=== PATIENT | female | born 1995 | race American Indian/Alaskan Native ===

== ENCOUNTER 2017-06-28 08:37 | Emergency (ER) | payer SELFPAY ==
[2017-06-28 08:52] VITALS: BP 105/69
--- NOTE | 2017-06-28 09:34 | Emergency Department Report ---
ED Female HPI - General Chief complaint: Urogenital-Female Stated complaint: STOMACH PAINS, FOUL URINE Time Seen by Provider: 06/28/17 09:31 Source: patient Mode of arrival: Ambulatory Limitations: No Limitations - History of Present Illness Initial comments: Pt reports she was seen in ER in [place] last week and diagnosed with UTI, lost script and has continued to have sx of dysuria, frequency and is now also 3 days late for period. No current vaginal bleeding. Emesis x 2 this week. No fever. MD Complaint: dysuria, pelvic pain -: Gradual, week(s) (1) Location: suprapubic Radiation: suprapubic Severity: mild Quality: burning Consistency: constant Improves with: none Worsens with: none Associated Symptoms: abdominal pain, nausea/vomiting, dysuria. denies: vaginal discharge, vaginal bleeding, fever/chills - Related Data Sexually active: Yes Previous Rx's Medication Instructions Recorded Last Taken Type Nitrofurantoin Monohyd/M-Cryst 100 mg PO BID #14 capsule 06/28/17 Unknown Rx [Macrobid 100 mg Capsule] Allergies Allergy/AdvReac Type Severity Reaction Status Date / Time No Known Allergies Allergy Verified 06/28/17 08:46 ED Review of Systems ROS: Stated complaint: STOMACH PAINS, FOUL URINE Other details as noted in HPI Comment: All other systems reviewed and negative Constitutional: denies: chills, fever Eyes: denies: eye pain, eye discharge, vision change ENT: denies: ear pain, throat pain Respiratory: denies: cough, shortness of breath, wheezing Cardiovascular: denies: chest pain, palpitations Endocrine: no symptoms reported Gastrointestinal: as per HPI, abdominal pain, nausea, vomiting. denies: diarrhea Genitourinary: as per HPI, urgency, dysuria. denies: discharge Musculoskeletal: denies: back pain, joint swelling, arthralgia Skin: denies: rash, lesions Neurological: denies: headache, weakness, paresthesias Psychiatric: denies: anxiety, depression Hematological/Lymphatic: denies: easy bleeding, easy bruising ED Past Medical Hx - Past Medical History Previous Medical History?: No - Surgical History Past Surgical History?: No - Social History Smoking Status: Never Smoker Substance Use Type: None - Medications Home Medications: Home Medications Medication Instructions Recorded Confirmed Last Taken Type Nitrofurantoin Monohyd/M-Cryst 100 mg PO BID #14 capsule 06/28/17 Unknown Rx [Macrobid 100 mg Capsule] ED Physical Exam - General Limitations: No Limitations General appearance: alert, in no apparent distress - Head Head exam: Present: atraumatic, normocephalic - Eye Eye exam: Present: normal appearance - ENT ENT exam: Present: mucous membranes moist - Neck Neck exam: Present: normal inspection - Respiratory Respiratory exam: Present: normal lung sounds bilaterally. Absent: respiratory distress - Cardiovascular Cardiovascular Exam: Present: regular rate, normal rhythm. Absent: systolic murmur, diastolic murmur, rubs, gallop - GI/Abdominal GI/Abdominal exam: Present: soft, tenderness (suprapubic), normal bowel sounds. Absent: guarding, rebound - Extremities Exam Extremities exam: Present: normal inspection - Back Exam Back exam: Present: normal inspection - Neurological Exam Neurological exam: Present: alert, oriented X3 - Psychiatric Psychiatric exam: Present: normal affect, normal mood - Skin Skin exam: Present: warm, dry, intact, normal color. Absent: rash ED Course Vital Signs 06/28/17 08:46 Temperature 98.3 F Pulse Rate 64 Respiratory 18 Rate Blood Pressure 105/69 O2 Sat by Pulse 100 Oximetry - Reevaluation(s) Reevaluation #1: 06/28/17 11:05 Pt is in NAD and stable for d/c. ED Medical Decision Making - Lab Data UA shows leukocytes and WBC c/w UTI. UPT would not post in EMR though lab verbally told me it was negative. - Medical Decision Making Pt with UTI, consistent sx. Will treat and have her follow up with PCP. Supportive care and return precautions given. - Differential Diagnosis UTI, stone, STI Critical care attestation.: If time is entered above; I have spent that time in minutes in the direct care of this critically ill patient, excluding procedure time. ED Disposition Clinical Impression: Acute UTI (urinary tract infection) Disposition: TO HOME OR SELFCARE Is pt being admited?: No Condition: Good Instructions: Urinary Tract Infection in Women (ED) Prescriptions: Nitrofurantoin Monohyd/M-Cryst [Macrobid 100 mg Capsule] 100 mg PO BID #14 capsule Referrals: PRIMARY CAREMD [Primary Care Provider] - 3-5 Days MARK LYNN MD [Staff Physician] - 3-5 Days Time of Disposition: 11:08
[2017-06-28 09:41] LABS: Bacteria,Urine 1+ /HPF (Negative); Bilirubin,Urine NEG (Negative); Blood,Urine NEG (Negative); Ketones,Urine NEG (Negative); Leukocyte Esterase,Urine SM (Negative); Mucus,Urine 3+ /HPF; Nitrite,Urine NEG (Negative); Protein,Urine <15 mg/dL mg/dL (Negative); Urobilinogen,Urine < 2.0 mg/dL (<2.0)
[2017-06-28] MEDS ORDERED: ROCEPHIN IM ONE (10:15)
[2017-06-28] MEDS ORDERED: XYLOCAINE 1% MPF 5 mL INFILTRATI ONE (10:15)
== END 2017-06-28 11:23 | disposition home or self-care (01) ==
LOC: ED 08:37
DX: N39.0 Urinary tract infection, site not specified (principal)
CPT/HCPCS: 81001; 81025; 96372; 99282; J0696

== ENCOUNTER 2017-09-29 22:09 | Emergency (ER) | payer SELFPAY ==
[2017-09-30 04:42] LABS: HCG Qualitative,Urine Negative (Negative)
[2017-09-30 04:44] LABS: Bilirubin,Urine NEG (Negative); Blood,Urine NEG (Negative); Color,Urine Yellow (Yellow); Mucus,Urine 1+ /HPF; Nitrite,Urine NEG (Negative); Protein,Urine <15 mg/dL mg/dL (Negative); Urobilinogen,Urine < 2.0 mg/dL (<2.0)
--- NOTE | 2017-09-30 05:34 | Emergency Department Report ---
ED Female HPI - General Chief complaint: Urogenital-Female Stated complaint: URINE PROBLEMS Time Seen by Provider: 09/30/17 03:46 Source: patient Mode of arrival: Ambulatory Limitations: No Limitations - History of Present Illness Initial comments: 22-year-old -[place] female comes in for vaginal discharge with odor that she's had for at least a week. Patient denies any vaginal bleeding denies any dysuria denies any fever chills no nausea no vomiting no diarrhea. She is sexually active with males unprotected 2 partners in the last year denies any abdominal pain. She has no known drug allergies no past medical history currently takes no meds. MD Complaint: vaginal discharge -: week(s) (1) Are you Now?: No Last Menstrual Period: 09/27/17 EDC: 07/04/18 Associated Symptoms: vaginal discharge. denies: vaginal bleeding, abdominal pain, nausea/vomiting, fever/chills, headaches, loss of appetite, dysuria, hematuria - Related Data Sexually active: Yes (men) Previous Rx's Medication Instructions Recorded Last Taken Type Nitrofurantoin Monohyd/M-Cryst 100 mg PO BID #14 capsule 06/28/17 Unknown Rx [Macrobid 100 mg Capsule] Allergies Allergy/AdvReac Type Severity Reaction Status Date / Time No Known Allergies Allergy Verified 06/28/17 08:46 ED Review of Systems ROS: Stated complaint: URINE PROBLEMS Other details as noted in HPI Constitutional: denies: chills, fever Eyes: denies: eye pain, eye discharge, vision change ENT: denies: ear pain, throat pain Respiratory: denies: cough, shortness of breath, wheezing Cardiovascular: denies: chest pain, palpitations Endocrine: no symptoms reported Gastrointestinal: denies: abdominal pain, nausea, diarrhea Genitourinary: discharge (vaginal) Musculoskeletal: denies: back pain, joint swelling, arthralgia Skin: denies: rash, lesions Neurological: denies: headache, weakness, paresthesias Psychiatric: denies: anxiety, depression ED Past Medical Hx - Past Medical History Previous Medical History?: No - Surgical History Past Surgical History?: No - Social History Smoking Status: Current Every Day Smoker Substance Use Type: None - Medications Home Medications: Home Medications Medication Instructions Recorded Confirmed Last Taken Type Nitrofurantoin Monohyd/M-Cryst 100 mg PO BID #14 capsule 06/28/17 Unknown Rx [Macrobid 100 mg Capsule] ED Physical Exam - General Limitations: No Limitations ED Course Vital Signs 09/30/17 02:32 Temperature 98.3 F Pulse Rate 74 Respiratory 17 Rate Blood Pressure 112/84 O2 Sat by Pulse 100 Oximetry ED Medical Decision Making - Medical Decision Making Patient has been seen by this provider fast track. Vaginal cultures and wet prep obtained and sent to the lab. We'll treat the patient presumptively for STDs Critical care attestation.: If time is entered above; I have spent that time in minutes in the direct care of this critically ill patient, excluding procedure time. ED Disposition Clinical Impression: Vaginitis Qualifiers: Chronicity: acute Qualified Code(s): N76.0 - Acute vaginitis Disposition: ELOPED Is pt being admited?: No Does the pt Need Aspirin: No Condition: Stable Referrals: PRIMARY CARE, [Primary Care Provider] - 3-5 Days
[2017-09-30] MEDS ORDERED: ZITHROMAX PO ONE (08:15)
[2017-09-30] MEDS ORDERED: ROCEPHIN IM ONE (08:15)
[2017-09-30] MEDS ORDERED: XYLOCAINE 1% MPF 5 mL INFILTRATI ONE (08:15)
[2017-09-30 08:48] VITALS: BP 112/77
== END 2017-09-30 08:40 | disposition home or self-care (01) ==
LOC: ED 22:09
DX: N76.0 Acute vaginitis (principal); F17.200 Nicotine dependence, unspecified, uncomplicated
CPT/HCPCS: 81001; 81025; 87210; 87591; 96372; 99283; J0696

== ENCOUNTER 2018-04-07 00:26 | Emergency (ER) | payer SELFPAY ==
[2018-04-07 01:04] VITALS: BP 113/75
[2018-04-07 02:00] LABS: Amorphous Crystals,Urine 2+; Bacteria,Urine 1+ /HPF (Negative); Bilirubin,Urine NEG (Negative); Blood,Urine SM (Negative); Color,Urine Yellow (Yellow); Granular Casts,Urine 51 /LPF; Mucus,Urine FEW /HPF; Protein,Urine <15 mg/dL mg/dL (Negative)
[2018-04-07 02:01] LABS: HCG Qualitative,Urine Negative (Negative)
--- NOTE | 2018-04-07 03:56 | Emergency Department Report ---
ED Female HPI - General Chief complaint: Urogenital-Female Stated complaint: ABDOMINAL PAIN,BURN WHEN URINATING Time Seen by Provider: 04/07/18 03:43 Source: patient Mode of arrival: Ambulatory Limitations: No Limitations - Related Data Previous Rx's Medication Instructions Recorded Last Taken Type Nitrofurantoin Monohyd/M-Cryst 100 mg PO BID #14 capsule 06/28/17 Unknown Rx [Macrobid 100 mg Capsule] metroNIDAZOLE [Flagyl] 500 mg PO Q12HR #14 tab 09/30/17 Unknown Rx Allergies Allergy/AdvReac Type Severity Reaction Status Date / Time No Known Allergies Allergy Verified 06/28/17 08:46 ED Review of Systems ROS: Stated complaint: ABDOMINAL PAIN,BURN WHEN URINATING Other details as noted in HPI ED Past Medical Hx - Past Medical History Previous Medical History?: No - Surgical History Past Surgical History?: No - Social History Smoking Status: Never Smoker Substance Use Type: None - Medications Home Medications: Home Medications Medication Instructions Recorded Confirmed Last Taken Type Nitrofurantoin Monohyd/M-Cryst 100 mg PO BID #14 capsule 06/28/17 Unknown Rx [Macrobid 100 mg Capsule] metroNIDAZOLE [Flagyl] 500 mg PO Q12HR #14 tab 09/30/17 Unknown Rx ED Physical Exam - General Limitations: No Limitations ED Course Vital Signs 04/07/18 00:34 Temperature 99.1 F Pulse Rate 73 Respiratory 16 Rate Blood Pressure 113/75 O2 Sat by Pulse 100 Oximetry Critical care attestation.: If time is entered above; I have spent that time in minutes in the direct care of this critically ill patient, excluding procedure time. ED Disposition Disposition: DC-01 TO HOME OR SELFCARE Condition: Stable Referrals: PRIMARY CARE, [Primary Care Provider] - 3-5 Days
[2018-04-07] MEDS ORDERED: ZITHROMAX ONE (05:48)
[2018-04-07] MEDS ORDERED: ROCEPHIN ONE (05:49)
== END 2018-04-07 03:45 | disposition home or self-care (01) ==
LOC: ED 00:26
DX: R10.9 Unspecified abdominal pain (principal); R30.0 Dysuria
CPT/HCPCS: 81001; 81025; 87210; 87591; 99284; J0696

== ENCOUNTER 2019-01-21 22:46 | Emergency (ER) | payer SELFPAY ==
[2019-01-21 22:57] VITALS: BP 114/75
[2019-01-22 00:06] LABS: Hematocrit 42.1 % (30.3-42.9); Hemoglobin 14.4 gm/dl (10.1-14.3); Mean Corpuscular HGB Conc 34 % (30-34); Mean Corpuscular Volume 89 fl (79-97); Platelet Count 228 K/mm3 (140-440); Red Blood Count 4.74 M/mm3 (3.65-5.03); Red Cell Distribution Width 13.3 % (13.2-15.2)
[2019-01-22 00:19] LABS: Bilirubin,Urine NEG (Negative); Blood,Urine NEG (Negative); Color,Urine Yellow (Yellow); Hyaline Casts,Urine 1 /LPF; Mucus,Urine FEW /HPF; Protein,Urine <15 mg/dL mg/dL (Negative)
[2019-01-22 00:25] LABS: Alanine Aminotransferase 25 units/L (7-56); Albumin 4.6 g/dL (3.9-5); BUN/Creatinine Ratio 14; Blood Urea Nitrogen 10 mg/dL (7-17); Hemolysis Index 13
--- NOTE | 2019-01-22 02:03 | Emergency Department Report ---
ED Female HPI - General Chief complaint: Abdominal Pain Stated complaint: PAINFUL VAGINAL DISCHARGE ODOR ABD PAIN Time Seen by Provider: 01/22/19 01:35 Source: patient Mode of arrival: Ambulatory Limitations: No Limitations - History of Present Illness Initial comments: This is a 23-year-old female who presents to ED complaining of mild odorous vaginal discharge for the past 3 days. Patient states that she is experiencing some pelvic cramping. Patient denies fevers/chills/nausea vomiting/irregular bleeding/vaginal lesions/dysuria/vaginal itching. Patient states she was recently seen about a week ago and was treated for a UTI and currently taking Bactrim. MD Complaint: vaginal discharge, pelvic pain - Related Data Previous Rx's Medication Instructions Recorded Last Taken Type Nitrofurantoin Monohyd/M-Cryst 100 mg PO BID #14 capsule 06/28/17 Unknown Rx [Macrobid 100 mg Capsule] metroNIDAZOLE [Flagyl] 500 mg PO Q12HR #14 tab 09/30/17 Unknown Rx Clindamycin [Clindamycin CAP] 300 mg PO BID #14 cap 01/22/19 Unknown Rx Fluconazole [Diflucan TAB] 150 mg PO ONCE #1 tablet 01/22/19 Unknown Rx Allergies Allergy/AdvReac Type Severity Reaction Status Date / Time No Known Allergies Allergy Verified 06/28/17 08:46 ED Review of Systems ROS: Stated complaint: PAINFUL VAGINAL DISCHARGE ODOR ABD PAIN Other details as noted in HPI Comment: All other systems reviewed and negative ED Past Medical Hx - Past Medical History Previous Medical History?: No - Surgical History Past Surgical History?: No - Social History Smoking Status: Former Smoker Substance Use Type: None - Medications Home Medications: Home Medications Medication Instructions Recorded Confirmed Last Taken Type Nitrofurantoin Monohyd/M-Cryst 100 mg PO BID #14 capsule 06/28/17 Unknown Rx [Macrobid 100 mg Capsule] metroNIDAZOLE [Flagyl] 500 mg PO Q12HR #14 tab 09/30/17 Unknown Rx Clindamycin [Clindamycin CAP] 300 mg PO BID #14 cap 01/22/19 Unknown Rx Fluconazole [Diflucan TAB] 150 mg PO ONCE #1 tablet 01/22/19 Unknown Rx ED Physical Exam - General Limitations: No Limitations General appearance: alert, in no apparent distress - Head Head exam: Present: atraumatic, normocephalic - Eye Eye exam: Present: normal appearance - ENT ENT exam: Present: mucous membranes moist - Neck Neck exam: Present: normal inspection - Respiratory Respiratory exam: Present: normal lung sounds bilaterally. Absent: respiratory distress - Cardiovascular Cardiovascular Exam: Present: regular rate, normal rhythm. Absent: systolic murmur, diastolic murmur, rubs, gallop - GI/Abdominal GI/Abdominal exam: Present: soft, normal bowel sounds. Absent: distended, tenderness - External exam: Present: normal external exam Speculum exam: Present: vaginal discharge (copious, green, malodorous), cervical discharge, other (sample obtained for wet prep as well as GC). Absent: vaginal bleeding, foreign body Bi-manual exam: Present: normal bi-manual exam. Absent: cervical motion tendernes, adnexal tenderness - Extremities Exam Extremities exam: Present: normal inspection - Back Exam Back exam: Present: normal inspection - Neurological Exam Neurological exam: Present: alert, oriented X3 - Psychiatric Psychiatric exam: Present: normal affect, normal mood - Skin Skin exam: Present: warm, dry, intact, normal color. Absent: rash ED Course Vital Signs 01/21/19 22:56 Temperature 97.9 F Pulse Rate 97 H Respiratory 18 Rate Blood Pressure 114/75 O2 Sat by Pulse 100 Oximetry ED Medical Decision Making - Lab Data Result diagrams: 01/21/19 23:50 01/21/19 23:50 - Medical Decision Making 23-year-old female presents with vaginitis ED course: urinalysis and gonorrhea and Chlamydia cultures obtained. Urinalysis negative, test negative Discussed the patient diarrhea and Chlamydia results would not return on several 3-4 days. Patient may call back for results and treatment Discussed with patient findings and treatment Discussed patient partner knowledge and treatment. Discussed the follow-up with the health department for further STD testing. Patient's alert and oriented times 3. Vital signs are normal patient is in no acute discharge. Patient will be discharged home with instructions. Critical care attestation.: If time is entered above; I have spent that time in minutes in the direct care of this critically ill patient, excluding procedure time. ED Disposition Clinical Impression: Vaginitis, Bacterial vaginosis Disposition: - TO HOME OR SELFCARE Is pt being admited?: No Does the pt Need Aspirin: No Condition: Stable Instructions: Bacterial Vaginosis (ED), Safe Sex (ED), Trichomoniasis (ED), Vaginitis (ED), Abdominal Pain (ED) Additional Instructions: Make sure to follow up with the primary care physician as discussed. Take all your medications as you've been prescribed. If you have any worsening symptoms or develop new symptoms please return to ED immediately. Prescriptions: Clindamycin [Clindamycin CAP] 300 mg PO BID #14 cap Fluconazole [Diflucan TAB] 150 mg PO ONCE #1 tablet Referrals: [facility] [Outside] - 3-5 Days [facility] [Outside] - 3-5 Days Forms: Work/School Release Form(ED), STI Treatment and Prevention Time of Disposition: 03:06
[2019-01-22 06:31] LABS: Band Neutrophils # (Manual) 0.2 K/mm3; RBC Morphology Normal; Total Cells Counted 100
== END 2019-01-22 03:15 | disposition home or self-care (01) ==
LOC: ED 22:46
DX: N76.0 Acute vaginitis (principal); B96.89 Other specified bacterial agents as the cause of diseases classified elsewhere; Z87.891 Personal history of nicotine dependence
CPT/HCPCS: 36415; 80053; 81001; 84703; 85007; 85025; 87210; 87591; 99284

== ENCOUNTER 2019-09-18 06:19 | Emergency (ER) | payer SELFPAY ==
[2019-09-18 06:29] VITALS: BP 122/76
[2019-09-18 08:22] LABS: Bilirubin,Urine NEG (Negative); Blood,Urine NEG (Negative); Color,Urine Yellow (Yellow); Mucus,Urine FEW /HPF; Protein,Urine <15 mg/dL mg/dL (Negative); Urobilinogen,Urine < 2.0 mg/dL (<2.0); WBC,Urine < 1.0 /HPF (0.0-6.0)
--- NOTE | 2019-09-18 08:24 | Emergency Department Report ---
Chief Complaint: Urogenital-Female Stated Complaint: VAGINAL DISCHARGE Time Seen by Provider: 09/18/19 07:49 - HPI History of Present Illness: 24-year-old female complaining of vaginal discharge 3 days. - Exam Vital Signs: Vital Signs 09/18/19 06:24 Temperature 97.6 F Pulse Rate 78 Respiratory 18 Rate Blood Pressure 122/76 O2 Sat by Pulse 100 Oximetry Physical Exam: Patient alert and oriented 3 respirations easy and nonlabored skin warm dry and intact she's amateur with steady gait and in no distress MSE screening note: Focused history and physical exam performed. Due to findings the following was ordered: 24-year-old female with complaint of vaginal discharge 3 days only she denies any abdominal pain nausea vomiting discussed with patient this emergency room policy on vaginal discharge and STD screening. Instructed patient to follow up with her PCP [facility] or Dr. Luis Carlos Sutherland ED Disposition for MSE Clinical Impression: Vaginal discharge Disposition: MED SCREENING EXAM-LEFT Is pt being admited?: No Does the pt Need Aspirin: No Condition: Stable Additional Instructions: Instruct patient to follow-up with [facility] or her PCP I offered patient pamphlets for [facility] and Dr. Luis Carlos Blum patient refused states she will go someplace else. Patient got up and walked out of the emergency room Time of Disposition: 08:23
[2019-09-18 08:31] LABS: HCG Qualitative,Urine Negative (Negative)
== END 2019-09-18 08:24 | disposition left against medical advice (07) ==
LOC: ED 06:19
DX: N89.8 Other specified noninflammatory disorders of vagina (principal)
CPT/HCPCS: 81001; 81025

== ENCOUNTER 2019-11-02 07:58 | Emergency (ER) | payer SELFPAY ==
[2019-11-02 08:06] VITALS: BP 126/73
[2019-11-02] MEDS ORDERED: ACETAMINOPHEN 325 MG TAB PO ONE (08:26)
--- NOTE | 2019-11-02 08:26 | Emergency Department Report ---
Minor Respiratory - HPI Chief Complaint: Sore Throat Stated Complaint: SORE THROAT, COUGHING Time Seen by Provider: 11/02/19 08:16 Duration: 3 Days Pain Location: Throat, Other (nasal congestion runny nose) Severity: mild Minor Respiratory: Yes Rhinorrhea, Yes Sore Throat (no drooling), Yes Able to Tolerate Fluids, No Ear Pain, No Cough, No Sick Contacts, No Hemoptysis, No Chest Pain, No Shortness of Breath, No Fever ED Review of Systems ROS: Stated complaint: SORE THROAT, COUGHING Other details as noted in HPI Constitutional: denies: chills, fever, weakness ENT: throat pain, congestion. denies: ear pain, dental pain, hearing loss Respiratory: denies: cough, shortness of breath, SOB with exertion, SOB at rest, wheezing Cardiovascular: denies: chest pain, palpitations, edema, syncope Gastrointestinal: denies: abdominal pain, nausea, vomiting, diarrhea Genitourinary: denies: dysuria, frequency, hematuria, discharge Musculoskeletal: denies: back pain, joint swelling, arthralgia, myalgia Skin: denies: rash Neurological: denies: headache, weakness ED Past Medical Hx - Past Medical History Previous Medical History?: No - Surgical History Past Surgical History?: No - Family History Family history: no significant - Social History Smoking Status: Never Smoker Substance Use Type: None - Medications Home Medications: Home Medications Medication Instructions Recorded Confirmed Last Taken Type Nitrofurantoin Monohyd/M-Cryst 100 mg PO BID #14 capsule 06/28/17 Unknown Rx [Macrobid 100 mg Capsule] metroNIDAZOLE [Flagyl] 500 mg PO Q12HR #14 tab 09/30/17 Unknown Rx Clindamycin [Clindamycin CAP] 300 mg PO BID #14 cap 01/22/19 Unknown Rx Fluconazole [Diflucan TAB] 150 mg PO ONCE #1 tablet 01/22/19 Unknown Rx Cetirizine HCl [ZyrTEC 10mg cap] 10 mg PO QDAY 10 Days #10 capsule 11/02/19 Unknown Rx Minor Respiratory Exam - Exam General: Vital signs noted. No distress. Alert and acting appropriately. This is a 24-year-old female here report that she is having sore throat and nasal congestion HEENT: Yes Moist Mucous Membranes, Yes Rhinorrhea, No Pharyngeal Erythema, No Pharyngeal Exudates, No Conjuctival Injection, No Frontal Tenderness, No Maxillary Tenderness Ear: Neither TM Bulge, Neither TM Erythema, Neither EAC Pain, Neither EAC Discharge Neck: Yes Supple, No Adenopathy Lungs: Yes Good Air Exchange, No Wheezes, No Ronchi, No Stridor, No Cough, No Labored Respirations, No Retractions, No Use of Accessory Muscles, No Other Abnormal Lung Sounds Heart: Yes Regular, No Murmur Abdomen: Yes Normal Bowel Sounds, No Tenderness, No Peritoneal Signs Skin: No Rash, No Edema Neurologic: Alert and oriented, no deficits. Musculoskeletal: Unremarkable. ED Course Vital Signs 11/02/19 08:04 Temperature 98.9 F Pulse Rate 104 H Respiratory 19 Rate Blood Pressure 126/73 [Left] O2 Sat by Pulse 99 Oximetry Vital Signs 11/02/19 11/02/19 11/02/19 08:04 08:34 09:05 Temperature 98.9 F Pulse Rate 104 H 100 H Respiratory 19 18 Rate Blood Pressure 126/73 [Left] O2 Sat by Pulse 99 99 Oximetry - Reevaluation(s) Reevaluation #1: 11/02/19 08:38 Patient stable. Pain 3/10. Tolerating fluids. Received Tylenol 975 mg po for sore throat ED Medical Decision Making - Lab Data Lab Results 11/02/19 Range/Units 08:25 Group A Strep Rapid Negative (Negative) - Medical Decision Making This is a 24-year-old female here for sore throat and found to have upper respiratory with congestion viral in nature. Patient given Zyrtec in emergency room. She remained stable. Vital signs stable she is afebrile and discharged home on Zyrtec and Flonase. She is to follow-up with her primary care physician and she voiced understanding. Critical care attestation.: If time is entered above; I have spent that time in minutes in the direct care of this critically ill patient, excluding procedure time. ED Disposition Clinical Impression: Upper respiratory infection, viral Pharyngitis Qualifiers: Pharyngitis/tonsillitis etiology: unspecified etiology Qualified Code(s): J02.9 - Acute pharyngitis, unspecified Disposition: DC-01 TO HOME OR SELFCARE Is pt being admited?: No Does the pt Need Aspirin: No Condition: Stable Instructions: COVID-19, Pharyngitis (ED), Upper Respiratory Infection (ED) Additional Instructions: Please follow up with your Primary Care Physician in 2 days If your condition worsens, Return to the emergency room Practice good hand hygiene Follow d/c instructions on Pharyngitis, COVID 19 and Upper Respiratory Tract Infection Gargle with warm salt water Take tylenol OTC 650 mg Q8H as needed for fever and or sore throat Prescriptions: Cetirizine HCl [ZyrTEC 10mg cap] 10 mg PO QDAY 10 Days #10 capsule Referrals: PRIMARY CARE [Primary Care Provider] - 11/04/19 Forms: Work/School Release Form(ED)
== END 2019-11-02 09:23 | disposition home or self-care (01) ==
LOC: ED 07:58
DX: J06.9 Acute upper respiratory infection, unspecified (principal); J02.9 Acute pharyngitis, unspecified; Z79.899 Other long term (current) drug therapy
CPT/HCPCS: 87116; 87430; 99283

== ENCOUNTER 2020-07-13 16:37 | Emergency (ER) | payer SELFPAY ==
[2020-07-13 16:46] VITALS: BP 117/66
[2020-07-13 19:04] LABS: Bacteria,Urine 4+ /HPF (Negative); Bilirubin,Urine NEG (Negative); Blood,Urine NEG (Negative); Color,Urine Yellow (Yellow); Mucus,Urine 3+ /HPF; Protein,Urine <15 mg/dL mg/dL (Negative); Urobilinogen,Urine < 2.0 mg/dL (<2.0)
--- NOTE | 2020-07-13 19:15 | Emergency Department Report ---
ED General Adult HPI - General Chief complaint: Urogenital-Female Stated complaint: POSS UTI Source: patient Mode of arrival: Ambulatory Limitations: No Limitations - History of Present Illness Initial comments: 24-year-old -[place] female patient without past medical history presents with complaints of burning urination and urinary frequency x1 week. She denies any vaginal discharge, dyspareunia, vaginal bleeding, fever/chills/sweats, or abdominal pain. She also complains of bilateral intermittent mid back pain that has been going on for more than a year. She de nies any current back pain, shortness of breath, or chest pain. Patient reports when the back pain comes it causes her to vomit. She denies having seen a primary care provider concerning this. Severity scale (0 -10): 10 - Related Data Previous Rx's Medication Instructions Recorded Last Taken Type Nitrofurantoin Monohyd/M-Cryst 100 mg PO BID #14 capsule 06/28/17 Unknown Rx [Macrobid 100 mg Capsule] metroNIDAZOLE [Flagyl] 500 mg PO Q12HR #14 tab 09/30/17 Unknown Rx Clindamycin [Clindamycin CAP] 300 mg PO BID #14 cap 01/22/19 Unknown Rx Cetirizine HCl [ZyrTEC 10mg cap] 10 mg PO QDAY 10 Days #10 capsule 11/02/19 Unknown Rx Fluconazole (Nf) [Diflucan TAB] 150 mg PO ONCE #1 tablet 07/13/20 Unknown Rx Sulfamethoxazole/Trimethoprim 1 each PO BID 5 Days #10 tablet 07/13/20 Unknown Rx [Bactrim DS TAB] Allergies Allergy/AdvReac Type Severity Reaction Status Date / Time No Known Allergies Allergy Verified 06/28/17 08:46 ED Review of Systems ROS: Stated complaint: POSS UTI Other details as noted in HPI Constitutional: denies: chills, fever, malaise Respiratory: denies: cough, shortness of breath Cardiovascular: denies: chest pain Gastrointestinal: denies: abdominal pain, nausea, vomiting Genitourinary: dysuria, frequency. denies: hematuria, discharge, dyspareunia Musculoskeletal: as per HPI Skin: denies: lesions, change in color ED Past Medical Hx - Past Medical History Previous Medical History?: No - Surgical History Past Surgical History?: No - Social History Smoking Status: Never Smoker Substance Use Type: None - Medications Home Medications: Home Medications Medication Instructions Recorded Confirmed Last Taken Type Nitrofurantoin Monohyd/M-Cryst 100 mg PO BID #14 capsule 06/28/17 Unknown Rx [Macrobid 100 mg Capsule] metroNIDAZOLE [Flagyl] 500 mg PO Q12HR #14 tab 09/30/17 Unknown Rx Clindamycin [Clindamycin CAP] 300 mg PO BID #14 cap 01/22/19 Unknown Rx Cetirizine HCl [ZyrTEC 10mg cap] 10 mg PO QDAY 10 Days #10 capsule 11/02/19 Unknown Rx Fluconazole (Nf) [Diflucan TAB] 150 mg PO ONCE #1 tablet 07/13/20 Unknown Rx Sulfamethoxazole/Trimethoprim 1 each PO BID 5 Days #10 tablet 07/13/20 Unknown Rx [Bactrim DS TAB] ED Physical Exam - General Limitations: No Limitations General appearance: alert, in no apparent distress - Head Head exam: Present: atraumatic - Eye Eye exam: Present: normal appearance - ENT ENT exam: Present: normal exam - Neck Neck exam: Present: full ROM - Respiratory Respiratory exam: Present: normal lung sounds bilaterally. Absent: respiratory distress - Cardiovascular Cardiovascular Exam: Present: regular rate, normal rhythm - GI/Abdominal GI/Abdominal exam: Present: soft, normal bowel sounds. Absent: distended, tenderness, guarding, rebound, rigid - Extremities Exam Extremities exam: Present: normal inspection - Back Exam Back exam: Absent: CVA tenderness (R), CVA tenderness (L) - Neurological Exam Neurological exam: Present: alert, oriented X3, normal gait - Psychiatric Psychiatric exam: Present: normal affect, normal mood - Skin Skin exam: Present: warm, dry, intact, normal color. Absent: rash ED Course Vital Signs 07/13/20 16:44 Temperature 98.8 F Pulse Rate 87 Respiratory 18 Rate Blood Pressure 117/66 [Right] O2 Sat by Pulse 98 Oximetry ED Medical Decision Making - Medical Decision Making 24-year-old -[place] female patient without past medical history presents with complaints of burning urination and urinary frequency x1 week. She denies any vaginal discharge, dyspareunia, vaginal bleeding, fever/chills/sweats, or abdominal pain. She also complains of bilateral intermittent mid back pain that has been going on for more than a year. She denies any current back pain, shortness of breath, or chest pain. Patient reports when the back pain comes it causes her to vomit. She denies having seen a primary care provider concerning this. UA shows 13 WBCs and positive nitrites. Urine culture ordered. Vitals are normal she is well-appearing stable for discharge home. Prescription for Bactrim given. Recommend follow-up with primary care for further evaluation of chronic issues. Strict return precautions discussed in detail with patient who verbalizes understanding. Critical care attestation.: If time is entered above; I have spent that time in minutes in the direct care of this critically ill patient, excluding procedure time. ED Disposition Clinical Impression: UTI (urinary tract infection) Qualifiers: Urinary tract infection type: acute cystitis Hematuria presence: without hematuria Qualified Code(s): N30.00 - Acute cystitis without hematuria Disposition: - TO HOME OR SELFCARE Is pt being admited?: No Condition: Stable Instructions: Urinary Tract Infection, Adult Prescriptions: Sulfamethoxazole/Trimethoprim [Bactrim DS TAB] 1 each PO BID 5 Days #10 tablet Fluconazole (Nf) [Diflucan TAB] 150 mg PO ONCE #1 tablet Referrals: [facility] [Provider Group] - 3-5 Days Forms: Work/School Release Form(ED)
[2020-07-13 19:18] LABS: HCG Qualitative,Urine Negative (Negative)
== END 2020-07-13 20:00 | disposition home or self-care (01) ==
LOC: ED 16:37
DX: N39.0 Urinary tract infection, site not specified (principal); Z79.899 Other long term (current) drug therapy
CPT/HCPCS: 81001; 81025; 87076; 87086; 87186; 99283

== ENCOUNTER 2021-07-20 17:45 | Emergency (ER) | payer SELFPAY ==
[2021-07-20 17:50] VITALS: BP 112/76
[2021-07-20 18:53] LABS: Bacteria,Urine 1+ /HPF (Negative); Bilirubin,Urine NEG (Negative); Blood,Urine NEG (Negative); Color,Urine Yellow (Yellow); Mucus,Urine FEW /HPF; Protein,Urine <15 mg/dL mg/dL (Negative)
--- NOTE | 2021-07-20 19:14 | Emergency Department Report ---
ED Female HPI - General Chief complaint: Urogenital-Female Stated complaint: VAG ITCHING Time Seen by Provider: 07/20/21 18:32 Source: patient Mode of arrival: Ambulatory Limitations: No Limitations - History of Present Illness Initial comments: 25-year-old female presents to the ER today with complaints of vaginal itching, vaginal odor and discharge. She states that symptoms started about 4 days ago. She describes the discharge as a pinkish-whitish discharge. She states that her last menstrual cycle ended 5 days ago. She denies any pelvic/abdominal or back pain. She denies any UTI symptoms. She states that she does have a new sexual partner, but has not had any vaginal intercourse with him, just mainly oral. She reports no fever, chills or any additional symptoms at this time. MD Complaint: vaginal discharge -: Gradual, days(s) (4) - Related Data Previous Rx's Medication Instructions Recorded Last Taken Type Fluconazole [Diflucan TAB] 200 mg PO QDAY #1 tablet 07/20/21 Unknown Rx Allergies Allergy/AdvReac Type Severity Reaction Status Date / Time No Known Allergies Allergy Verified 06/28/17 08:46 ED Review of Systems ROS: Stated complaint: VAG ITCHING Other details as noted in HPI Comment: All other systems reviewed and negative Respiratory: denies: cough, shortness of breath, wheezing Cardiovascular: denies: chest pain, palpitations Gastrointestinal: denies: abdominal pain, nausea, vomiting, diarrhea, constipation, hematemesis, melena, hematochezia Genitourinary: discharge. denies: urgency, dysuria, frequency, hematuria, abnormal menses, dyspareunia Musculoskeletal: denies: back pain, joint swelling, arthralgia Skin: pruritus. denies: rash, lesions, change in color, change in hair/nails Neurological: denies: headache, weakness, numbness, paresthesias, confusion, abnormal gait, vertigo Psychiatric: denies: anxiety, depression, auditory hallucinations, visual hallucinations, homicidal thoughts, suicidal thoughts Hematological/Lymphatic: denies: easy bleeding, easy bruising ED Past Medical Hx - Social History Smoking Status: Never Smoker Substance Use Type: None - Medications Home Medications: Home Medications Medication Instructions Recorded Confirmed Last Taken Type Fluconazole [Diflucan TAB] 200 mg PO QDAY #1 tablet 07/20/21 Unknown Rx ED Physical Exam - General Limitations: No Limitations General appearance: alert, in no apparent distress - Head Head exam: Present: atraumatic, normocephalic, normal inspection - Eye Eye exam: Present: normal appearance, PERRL, EOMI Pupils: Present: normal accommodation - Neck Neck exam: Present: normal inspection, full ROM - Respiratory Respiratory exam: Present: normal lung sounds bilaterally. Absent: respiratory distress, wheezes, rales, rhonchi - Cardiovascular Cardiovascular Exam: Present: regular rate, normal rhythm, normal heart sounds - GI/Abdominal GI/Abdominal exam: Present: soft. Absent: distended, tenderness, guarding, rebound - External exam: Present: normal external exam, other (Sleeve Separator present ). Absent: erythema, swelling, lesions, lacerations, ecchymosis Speculum exam: Present: vaginal discharge (moderate amount of white discharge ). Absent: erythema, cervical discharge, vaginal bleeding, foreign body, tissue, laceration Bi-manual exam: Present: normal bi-manual exam. Absent: cervical motion tendernes, adnexal tenderness, adnexal mass, uterine enlargement, uterine tenderness - Extremities Exam Extremities exam: Present: normal inspection - Back Exam Back exam: Present: normal inspection, full ROM - Neurological Exam Neurological exam: Present: alert, oriented X3, CN II-XII intact, normal gait, motor sensory deficit - Psychiatric Psychiatric exam: Present: normal affect, normal mood - Skin Skin exam: Present: intact ED Course Vital Signs 07/20/21 17:49 Temperature 98.7 F Pulse Rate 89 Respiratory 16 Rate Blood Pressure 112/76 O2 Sat by Pulse 99 Oximetry ED Medical Decision Making - Medical Decision Making Urinalysis does not suggest UTI but does show yeast even though wet prep nega tive for yeast, is also negative for BV or trichomoniasis. hCG is negative. Patient states that she is not concerned for GC and therefore did not opt to have prophylactic treatment. She also has no pelvic pain or abdominal pain. Patient will be treated for yeast infection. Also given some [id number] suggestion to help with the vaginal odor. Patient expressed understanding agree with plan. Patient stable at time of discharge. Critical care attestation.: If time is entered above; I have spent that time in minutes in the direct care of this critically ill patient, excluding procedure time. ED Disposition Clinical Impression: Yeast vaginitis Disposition: HOME / SELF CARE / HOMELESS Is pt being admited?: No Does the pt Need Aspirin: No Condition: Stable Instructions: Vaginal Yeast Infection, Adult Additional Instructions: I recommend taking the diflucan as prescribed. I recommend using boric acid and a natural vaginal wash like honey pot which you can move purchase from [id number]. Follow-up with [facility] with any discharge instructions. Return to the ER if your symptoms changes or worsens in any way. Prescriptions: Fluconazole [Diflucan TAB] 200 mg PO QDAY #1 tablet Referrals: [facility] [Provider Group] - 3-5 Days Time of Disposition: 20:58
[2021-07-20 20:06] LABS: HCG Qualitative,Urine Negative (Negative)
== END 2021-07-20 21:34 | disposition home or self-care (01) ==
LOC: ED 17:45
DX: B37.3 Candidiasis of vulva and vagina (principal); Z79.899 Other long term (current) drug therapy
CPT/HCPCS: 81001; 81025; 87210; 99284